=== PATIENT | female | born 1960 | race Caucasian/White ===

== ENCOUNTER 2025-07-06 10:03 | Day surgery (SDC) | payer MEDICARE ==
[~2025-07-06] VITALS: Ht 170.2 cm; Wt 62.1 kg
[~2025-07-06 10:03] MED LIST: ATOR40TA75 PO; ESTR1CRE VA; MIDAZOLAM INJ 2 MG/2 ML VIAL As Ordered ONE; PHENYLEPHRINE 10% OPHTH SOL 5ML OS PRN; SYNT75TA PO
[2025-07-06] MEDS: OFLOXACIN 0.3 % (OCUFLOX) OPTH SOL 5ML OS ONE (11:19)
[2025-07-06] MEDS: CYCLOPENTOLATE 1% OPHTH SOLN 2 ML BTL OS SCH (11:19)
[2025-07-06] MEDS: PHENYLEPHRINE 2.5% OPHTH SOL 2ML OS SCH (11:19)
[2025-07-06] MEDS: LIDOCAINE 3.5% 1 ML OPHTH TOPICAL GEL OU ONE (11:19)
[2025-07-06] MEDS: TROPICAMIDE 1% OPHTH SOLN 15ML OS SCH (11:19)
[2025-07-06] MEDS: LIDOCAINE 1% SDV 5 ML VIAL As Ordered ONE (12:21)
[2025-07-06] MEDS: CEFUROXIME 1 MG/0.1 ML INTRACAMERAL INJ As Ordered ONE (12:21)
[2025-07-06 12:28] VITALS: BP 121/59; TEMP 97.3; O2SAT 96
== END 2025-07-06 12:43 | disposition home or self-care (01) ==
LOC: M SDC 10:03
PROVIDERS: ATTEND Ophthalmology
DX: H25.12 Age-related nuclear cataract, left eye (principal); E03.9 Hypothyroidism, unspecified; E78.00 Pure hypercholesterolemia, unspecified; Z79.899 Other long term (current) drug therapy; Z79.890 Hormone replacement therapy
CPT/HCPCS: 66984; J0697; J2250; J3010; V2632